=== PATIENT | male | born 1960 | race Caucasian/White ===

== ENCOUNTER 2017-09-12 15:32 | Emergency (ER) | payer BC ==
[2017-09-12] MEDS ORDERED: NS 0.9% 1000 ML* 1,000 ML IV ONE (15:52)
[2017-09-12] MEDS ORDERED: Ondansetron INJ* 2 MG/ML VIAL IV ONE (15:52)
[2017-09-12] MEDS ORDERED: Morphine INJ* 4 MG/ML 1 ML CARPUJECT IV ONE (15:52)
[2017-09-12] MEDS ORDERED: Morphine VIAL* 4 MG/ML VIAL (1 ml vial) IV ONE ×2 (15:58→15:59)
[2017-09-12] MEDS ORDERED: HYDROmorphone INJ* 2 MG/ML CARPUJECT SYRINGE IV SLOW PU ONE ×2 (16:15→17:09)
[2017-09-12] MEDS ORDERED: HYDROmorphone INJ* 2 MG/ML CARPUJECT SYRINGE ONE (16:17)
[2017-09-12 16:22] LABS: ABS Basophils 0 10^3/ul (0-0.2); ABS Eosinophils 0.1 10^3/ul (0-0.6); ABS Lymphocytes 1.6 10^3/ul (1.0-4.8); ABS Monocytes 0.7 10^3/ul (0-0.8); ABS Neutrophils 8.2 10^3/ul (1.5-7.7); ABS Nucleated RBC 0 10^3/ul; Hematocrit 43 % (42-52); Hemoglobin 14.5 g/dl (14.0-18.0); Lymphocyte % 14.9 % (25-47); Mean Corpuscular HGB Conc 34 g/dl (31-36); Mean Corpuscular Hemoglobin 32 pg (27-31); Mean Corpuscular Volume 94 fL (80-94); Mean Platelet Volume 8.3 um3 (7.4-10.4); Nucleated Red Blood Cells % 0.1; Platelet Count 147 10^3/ul (150-450); Red Blood Count 4.58 10^6/ul (4.0-5.4); Red Cell Distribution Width 13 % (10.5-15); White Blood Count 10.6 10^3/ul (3.5-10.8)
[2017-09-12 16:29] LABS: INR 0.94 (0.77-1.02)
[2017-09-12 16:39] LABS: EGFR Non-African American 98.9 (>60)
[2017-09-12] MEDS ORDERED: Iohexol 300* (CONTRAST) 10 ML SDV IV ONE (16:51)
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
--- NOTE | 2017-09-12 17:28 | RAD ---
INDICATION: Fall. Injury. COMPARISON: CT chest/abdomen/pelvis same date TECHNIQUE: An AP portable view obtained at 1710 hours is submitted. FINDINGS: Bones/Soft Tissues: There are no acute bony findings. Cardiomediastinal: The cardiomediastinal silhouette is normal. Lungs: There are no infiltrates. Pleura: There are no pleural effusions. Other: None IMPRESSION: NO ACTIVE DISEASE.
[2017-09-12 17:52] VITALS: BP 122/80
--- NOTE | 2017-09-12 17:59 | ED ---
Martha Roland Gabriel, scribed for Sami Jacobo on 09/12/17 at 1551 . Adult Trauma - HPI Summary HPI Summary: This patient is a 57 year old M presenting to [facility] after he fell through a floor while working on a house 20 min [employer] and landed on his stomach. The patient rates the pain 10/10 in severity. Symptoms aggravated by movement. Patient reports LLQ pain. Patient denies neck pain, back pain, CP, head trauma, and LOC. Hx of stage four prostate cancer that has been in remission for the past couple months. - History of Current Complaint Chief Complaint: EDTraumaMultiple Stated Complaint: FALL/ABD PAIN Time Seen by Provider: 09/12/17 15:47 Hx Obtained From: Patient Mechanism of Injury: Fall Ambulatory at the Scene: Yes Loss of Consciousness: no loss of consciousness Onset/Duration: Still Present Onset of Pain: Immediate Onset Severity: Severe Current Severity: Severe Pain Intensity: 10 Pain Scale Used: 0-10 Numeric Location: Abdomen/Pelvis Associated Signs & Symptoms: Positive: Negative - neck pain, back pain, CP, head trauma, and LOC, Other: - LLQ pain - Allergy/Home Medications Allergies/Adverse Reactions: Allergies Allergy/AdvReac Type Severity Reaction Status Date / Time No Known Allergies Allergy Verified 09/12/17 15:42 PMH/Surg Hx/FS Hx/Imm Hx Cardiovascular History: Denies: Hx Coronary Artery Disease, Hx Deep Vein Thrombosis Respiratory History: Denies: Hx Pneumonia, Hx Pulmonary Edema, Hx Pulmonary Embolism, Hx Seasonal Allergies, Hx Sleep Apnea GI History: Denies: Hx Diverticulosis, Hx Gall Bladder Disease History: Reports: Other Problems/Disorders - prostate cancer Sensory History: Reports: Hx Contacts or Glasses Opthamlomology History: Reports: Hx Contacts or Glasses Neurological History: Denies: Hx CVA - Cancer History Cancer Type, Location and Year: stage 4 cancer prostate - Immunization History Date of Tetanus Vaccine: 03/17/13 Infectious Disease History: No Infectious Disease History: Denies: Traveled Outside the [place] in Last 30 Days - Family History Known Family History: Negative: Diabetes, Renal Disease, Respiratory Disease, Seizure Disorder, Blood Disorder - Social History Occupation: Employed Full-time Lives: With Family Alcohol Use: Weekly Substance Use Type: Reports: None Hx Tobacco Use: Yes Smoking Status (MU): Current Every Day Smoker Review of Systems Constitutional: Negative - head trauma , Other - fall Negative: Chest Pain Positive: Abdominal Pain - LLQ pain Musculoskeletal: Negative - neck and back pain Neurological: Negative - LOC All Other Systems Reviewed And Are Negative: Yes Physical Exam - Summary Physical Exam Summary: Appearance: Well appearing, no pain distress Skin: warm, dry, reflects adequate perfusion Head/face: normal Eyes: EOMI, JOSE ENT: normal Neck: supple, non-tender Respiratory: CTA, breath sounds present Cardiovascular: RRR, pulses symmetrical Abdomen: TTP in the LUQ and LLQ Bowel: present Musculoskeletal: normal, strength/ROM intact Neuro: normal, sensory motor intact, A&Ox3 Triage Information Reviewed: Yes Vital Signs On Initial Exam: Initial Vitals Temp Pulse Resp BP Pulse Ox 98 F 92 16 165/85 97 09/12/17 15:47 09/12/17 15:47 09/12/17 15:47 09/12/17 15:47 09/12/17 15:47 Vital Signs Reviewed: Yes Diagnostics - Vital Signs Vital Signs Temp Pulse Resp BP Pulse Ox 09/12/17 17:51 99.0 F 97 19 122/80 95 09/12/17 17:13 26 09/12/17 17:01 97 97 09/12/17 16:40 108/83 09/12/17 16:21 96 142/110 96 09/12/17 16:18 18 09/12/17 16:05 18 09/12/17 16:00 98 96 09/12/17 15:53 100 97 09/12/17 15:47 98 F 96 16 165/85 97 - Laboratory Lab Results: Lab Results 09/12/17 09/12/17 09/12/17 Range/Units 16:01 16:02 16:02 WBC 10.6 (3.5-10.8) 10^3/ul RBC 4.58 (4.0-5.4) 10^6/ul Hgb 14.5 (14.0-18.0) g/dl Hct 43 (42-52) % MCV 94 (80-94) fL MCH 32 H (27-31) pg MCHC 34 (31-36) g/dl RDW 13 (10.5-15) % Plt Count 147 L (150-450) 10^3/ul MPV 8.3 (7.4-10.4) um3 Neut % (Auto) 77.0 (38-83) % Lymph % (Auto) 14.9 L (25-47) % Wilcox % (Auto) 6.8 (0-7) % Eos % (Auto) 1.0 (0-6) % Baso % (Auto) 0.3 (0-2) % Absolute Neuts (auto) 8.2 H (1.5-7.7) 10^3/ul Absolute Lymphs (auto) 1.6 (1.0-4.8) 10^3/ul Absolute Monos (auto) 0.7 (0-0.8) 10^3/ul Absolute Eos (auto) 0.1 (0-0.6) 10^3/ul Absolute Basos (auto) 0 (0-0.2) 10^3/ul Absolute Nucleated RBC 0 10^3/ul Nucleated RBC % 0.1 INR (Anticoag Therapy) 0.94 (0.77-1.02) Sodium 138 L (139-145) mmol/L Potassium 3.9 (3.5-5.0) mmol/L Chloride 107 (101-111) mmol/L Carbon Dioxide 24 (22-32) mmol/L Anion Gap 7 (2-11) mmol/L BUN 16 (6-24) mg/dL Creatinine 0.81 (0.67-1.17) mg/dL Est GFR ( Amer) 127.2 (>60) Est GFR (Non-Af Amer) 98.9 (>60) BUN/Creatinine Ratio 19.8 (8-20) Glucose 96 (70-100) mg/dL Lactic Acid (0.5-2.0) mmol/L Calcium 8.8 (8.6-10.3) mg/dL Total Bilirubin 0.40 (0.2-1.0) mg/dL AST 13 (13-39) U/L ALT 16 (7-52) U/L Alkaline Phosphatase 72 (34-104) U/L Troponin I 0.00 (<0.04) ng/mL Total Protein 6.7 (6.4-8.9) g/dL Albumin 3.9 (3.2-5.2) g/dL Globulin 2.8 (2-4) g/dL Albumin/Globulin Ratio 1.4 (1-3) 09/12/17 Range/Units 16:02 WBC (3.5-10.8) 10^3/ul RBC (4.0-5.4) 10^6/ul Hgb (14.0-18.0) g/dl Hct (42-52) % MCV (80-94) fL MCH (27-31) pg MCHC (31-36) g/dl RDW (10.5-15) % Plt Count (150-450) 10^3/ul MPV (7.4-10.4) um3 Neut % (Auto) (38-83) % Lymph % (Auto) (25-47) % Wilcox % (Auto) (0-7) % Eos % (Auto) (0-6) % Baso % (Auto) (0-2) % Absolute Neuts (auto) (1.5-7.7) 10^3/ul Absolute Lymphs (auto) (1.0-4.8) 10^3/ul Absolute Monos (auto) (0-0.8) 10^3/ul Absolute Eos (auto) (0-0.6) 10^3/ul Absolute Basos (auto) (0-0.2) 10^3/ul Absolute Nucleated RBC 10^3/ul Nucleated RBC % INR (Anticoag Therapy) (0.77-1.02) Sodium (139-145) mmol/L Potassium (3.5-5.0) mmol/L Chloride (101-111) mmol/L Carbon Dioxide (22-32) mmol/L Anion Gap (2-11) mmol/L BUN (6-24) mg/dL Creatinine (0.67-1.17) mg/dL Est GFR ( Amer) (>60) Est GFR (Non-Af Amer) (>60) BUN/Creatinine Ratio (8-20) Glucose (70-100) mg/dL Lactic Acid 0.3 L (0.5-2.0) mmol/L Calcium (8.6-10.3) mg/dL Total Bilirubin (0.2-1.0) mg/dL AST (13-39) U/L ALT (7-52) U/L Alkaline Phosphatase (34-104) U/L Troponin I (<0.04) ng/mL Total Protein (6.4-8.9) g/dL Albumin (3.2-5.2) g/dL Globulin (2-4) g/dL Albumin/Globulin Ratio (1-3) Result Diagrams: 09/12/17 16:01 09/12/17 16:02 Lab Statement: Any lab studies that have been ordered have been reviewed, and results considered in the medical decision making process. 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 The patient rates the pain 10/10 in severity. Symptoms aggravated by movement. Patient reports LLQ pain. Patient denies neck pain, back pain, CP, head trauma, and LOC. Hx of stage four prostate cancer that has been in remission for the past couple months. An EKG reveals sinus arrhythmia. CT Chest/ABD/Pelvis reveals, per radiologist, Lungs clear. No pneumothorax. No pulmonary contusion. No CT evidence of acute. manic injury to the solid viscera or free fluid. Prostatectomy. CT C-spine reveals, per radiologist, MODERATE MIDCERVICAL OSTEOARTHRITIC CHANGE. NO ACUTE FINDINGS. CT Brain reveals , per radiologist, NO ACUTE INTRACRANIAL FINDINGS. CXR reveals, per radiologist , no active disease. Dx fall, contusion of the left flank, and ABD pain. Blood work obtained. In the ED course the patient was given zofran and dilaudid. Patient will be discharged with prescription for iburprofen and follow up from PCP referral center. The patient is agreeable with this plan. - Diagnoses Differential Diagnosis/HQI/PQRI: Positive: Contusion(s), Fracture, Hematoma(s), Strain Provider Diagnoses: Fall, Contusion of flank, Abdominal pain - Critical Care Time Critical Care Time: 30-74 min Discharge - Sign-Out/Discharge Documenting (check all that apply): Discharge/Admit/Transfer - Discharge Plan Condition: Stable Disposition: HOME Prescriptions: Ibuprofen TAB* [Motrin TAB* 600 MG] 600 mg PO Q8H PRN #15 tab MDD 3 PRN Reason: Pain Patient Education Materials: Acute Abdominal Pain (ED), Flank Pain (ED) Referrals: [facility] PHYSICIAN REFERRAL [Outside] - 3 Days Additional Instructions: RETURN TO THE ER FOR ANY NEW OR WORSENING SYMPTOMS - Billing Disposition and Condition Condition: STABLE Disposition: HOME The documentation as recorded by the Martha wynn Gabriel accurately reflects the service I personally performed and the decisions made by , Sami Jacobo.
== END 2017-09-12 17:51 | disposition home or self-care (01) ==
LOC: ED 15:32
DX: S30.1XXA Contusion of abdominal wall, initial encounter (principal); W17.89XA Other fall from one level to another, initial encounter; Y93.H3 Activity, building and construction; Y92.009 Unspecified place in unspecified non-institutional (private) residence as the place of occurrence of the external cause; F17.200 Nicotine dependence, unspecified, uncomplicated; M47.812 Spondylosis without myelopathy or radiculopathy, cervical region
CPT/HCPCS: 36415; 70450; 71045; 71260; 72125; 74177; 80053; 83605; 84484; 85025; 85610; 93005; 96374; 96375; 96376; 99283; J1170; J2270; J2405; Q9967